=== PATIENT | male | born 1985 | race African-American/Black ===

== ENCOUNTER 2021-11-06 17:18 | Emergency (ER) | payer OTHER ==
[~2021-11-06] VITALS: Ht 190.5 cm; Wt 113.1 kg
--- NOTE | 2021-11-06 17:39 | PHYS DOC ---
Past Medical History Past Medical History: No Pertinent History (LUCIEN RODRIGUEZ DO) Additional Past Surgical Histo: Left leg (LUCIEN RODRIGUEZ DO) Smoking Status: Never Smoker Alcohol Use: None Drug Use: None (LUCIEN RODRIGUEZ DO) General Adult EDM: Chief Complaint: SHORTNESS OF BREATH HPI: HPI: Patient is a 36-year-old male who presents to the emergency department for shortness of breath, cough, nausea/vomiting and right-sided rib pain with movement and cough. Patient states that he was diagnosed with COVID-19 1 week ago. Patient has no medical history. He denies any chest pain, fevers, loss of taste and smell. Patient's vital signs are stable, he is mildly tachycardic but afebrile. (ARIA FRANCIS APRN) Review of Systems: Review of Systems: 14 body systems of the review of systems have been reviewed. See HPI for pertinent positive and negative responses, otherwise all other systems are negative, nonpertinent or noncontributory (ARIA FRANCIS APRN) Heart Score: C/O Chest Pain: No Risk Factors: Risk Factors: DM, Current or recent (<one month) smoker, HTN, HLP, family history of CAD, obesity. Risk Scores: Score 0 - 3: 2.5% MACE over next 6 weeks - Discharge Home Score 4 - 6: 20.3% MACE over next 6 weeks - Admit for Clinical Observation Score 7 - 10: 72.7% MACE over next 6 weeks - Early Invasive Strategies (ARIA FRANCIS APRN) Current Medications: Current Medications Medications (Trade) Dose Ordered Sig/Shari Start Time Stop Time Status Last Admin Dose Admin Ibuprofen (Motrin) 600 mg 1X ONCE 11/06/21 17:45 11/06/21 17:46 UNV (ARIA FRANCIS APRN) Allergies: Allergies: Allergies Coded Allergies Type Severity Reaction Last Updated Verified No Known Drug Allergies 11/06/21 No (ARIA FRANCIS APRN) Physical Exam: PE: Constitutional: Well developed, well nourished, no acute distress, non-toxic appearance. [] HENT: Normocephalic, atraumatic, bilateral external ears normal, oropharynx moist, no oral exudates, nose normal. [] Eyes: PERRL, EOMI, conjunctiva normal, no discharge. [] Neck: Normal range of motion, no tenderness, supple, no stridor. [] Cardiovascular:Heart rate regular rhythm, no murmur [] Lungs & Thorax: Right lower lobe coarse, clear in all other vogt, no hypoxia, mildly tachypneic Abdomen: Bowel sounds normal, soft, no tenderness, no masses, no pulsatile masses. [] Skin: Warm, dry, no erythema, no rash. [] Back: Normal range of motion Extremities: No tenderness, no cyanosis, no clubbing, ROM intact, no edema. [] Neurologic: Alert and oriented X 3, normal motor function, normal sensory function, no focal deficits noted. [] Psychologic: Affect normal, judgement normal, mood normal. [] (ARIA FRANCIS APRN) EKG: EKG: [] (ARIA FRANCIS APRN) Radiology/Procedures: Radiology/Procedures: []REASON: soa, r. rib pain with cough PROCEDURE: PORTABLE CHEST 1V AP chest. HISTORY: Short of air, right rib pain with cough AP view was taken of the chest. Patient's taken a poor inspiration. There are hazy bilateral infiltrates. Heart is normal in size. There is no pleural effusion. IMPRESSION: 1. Poor inspiration. 2. Mild hazy infiltrates. Electronically signed by: Kristopher Valdivia MD (11/06/2021 5:58 PM) [facility] DICTATED and SIGNED BY: KRISTOPHER VALDIVIA MD DATE: 11/06/21 [id number] (ARIA FRANCIS APRN) Course & Med Decision Making: Course & Med Decision Making Pertinent Labs and Imaging studies reviewed. (See chart for details) [] Patient presents to the emergency department for shortness of breath, nausea/vomiting and a cough post COVID-19 diagnosis. Patient's vital signs are stable, he is mildly tachycardic with a heart rate of 106. He is afebrile. Work-up in the ER consisted of blood work and chest x-ray. Patient be treated with ibuprofen and a liter of normal saline. Blood work was mostly unremarkable, mild elevated in creatinine likely due to hypovolemia from vomiting/dehydration-treated with IV fluids. Chest x-ray shows mild hazy bi lateral infiltrates which will be treated with an antibiotic. Following treatment in the emergency department patient's heart rate has improved to 100 bpm. Patient advised to purchase a pulse oximeter and monitor readings, return to the emergency department if her O2 saturation drops below 90%. She is also advised to rest, increase fluids, take Tylenol/ibuprofen for pain and fever. I discussed with patient all findings and diagnostic testing as well as the need to follow-up with PCP for further evaluation and treatment or return to the ER if any new or worsening symptoms. Strict return precautions were also discussed at length. Patient voiced understanding and agreement with the plan. Patient is hemodynamically stable at the time of disposition. (ARIA FRANCIS APRN) Dragon Disclaimer: DragQalendra Disclaimer: This electronic medical record was generated, in whole or in part, using a voice recognition dictation system. (ARIA FRANCIS APRN) Departure Departure Impression: Primary Impression: Pneumonia due to COVID-19 virus Disposition: HOME / SELF CARE / HOMELESS Condition: GOOD Patient Instructions: Pneumonia, Adult Additional Instructions: You are seen in the emergency department today for shortness of breath, cough, vomiting as well as right-sided chest wall pain. Your lab work was un remarkable, you did have an elevated creatinine level which could be due to dehydration from your episodes of vomiting. You need to follow-up with your primary care provider regarding this finding. Your chest x-ray did show pneumonia which will be treated with antibiotic. Please start and finish the antibiotic completely. Increase your fluids and rest at home. You can take Tyl enol and/or ibuprofen for your pain. Please purchase a pulse oximeter and monitor your O2 saturations and heart rate at home. Please return to the emergency department if your O2 saturation drops below 90%. You are being discharged home with a nausea medication that you can take as needed. Please follow-up with your primary care provider on Monday regarding your ER visit. Please return to the emergency department if you develop chest pain, increasing shortness of breath, high fevers refractory to treatment, intractable nausea or vomiting or any new or worsening concerns. Scripts Albuterol Sulfate (Proair Hfa) 8.5 Gm Hfa.aer.ad 1 PUFF INH PRN Q6HRS PRN for SHORTNESS OF BREATH for 30 Days, #1 EACH 0 Refills Prov: ARIA FRANCIS APRN 11/06/21 Ondansetron (ONDANSETRON ODT) 4 Mg Tab.rapdis 1 TAB PO PRN Q6-8HRS for 7 Days, #16 TAB 0 Refills Prov: ARIA FRANCIS APRN 11/06/21 Azithromycin (AZITHROMYCIN TABLET) 250 Mg Tablet 1 PKG PO UD for 5 Days, #6 TAB 0 Refills 2 the first day followed by 1 for days 2-5 Prov: ARIA FRANCIS APRN 11/06/21 Attending Signature Attending Signature I have reviewed the PA/[employer]'s note and plan of care. I was available for consultation as needed during the patient's visit in the emergency department. I agree with the clinical impression, plan, and disposition. (LUCIEN RODRIGUEZ DO) ARIA FRANCIS APRN Nov 06, 2021 17:39 LUCIEN RODRIGUEZ DO Nov 07, 2021 00:05
[2021-11-06] MEDS ORDERED: IBUPROFEN 200 MG TABLET. PO ONE (17:45)
[2021-11-06] MEDS ORDERED: IV NORMAL SALINE 1000ML BAG 1,000 ML IV ONE (17:45)
--- NOTE | 2021-11-06 18:01 | RAD ---
AP chest. HISTORY: Short of air, right rib pain with cough AP view was taken of the chest. Patient's taken a poor inspiration. There are hazy bilateral infiltra ana luisa. Heart is normal in size. There is no pleural effusion. IMPRESSION: 1. Poor inspiration. 2. Mild hazy infiltrates. Electronically signed by: Kristopher Valdivia MD (11/06/2021 5:58 PM) [facility]
[2021-11-06 18:18] LABS: BASO % 0 % (0-3); EOS % 0 % (0-3); HEMATOCRIT 39.2 % (39.0-53.0); HEMOGLOBIN 13.1 g/dL (13.0-17.5); LYMPH # 1.6 x10^3/uL (1.0-4.8); LYMPH % 19 % (24-48); MEAN CORPUSCULAR HEMOGLOBIN 31 pg (25-35); MEAN CORPUSCULAR HGB CONC 34 g/dL (31-37); MEAN CORPUSCULAR VOLUME 92 fL (79-100); MONO # 0.4 x10^3/uL (0.0-1.1); MONO % 5 % (0-9); NEUT # 6.5 x10^3/uL (1.8-7.7); NEUT % 77 % (31-73); PLATELET COUNT 200 x10^3/uL (140-400); RED BLOOD COUNT 4.27 x10^6/uL (4.30-5.70); RED CELL DISTRIBUTION WIDTH 12.8 % (11.5-14.5); WHITE BLOOD COUNT 8.6 x10^3/uL (4.0-11.0)
[2021-11-06] MEDS ORDERED: AZIT250T6 PO (18:22)
[2021-11-06 18:29] LABS: CALCIUM 8.5 mg/dL (8.5-10.1); CREATININE 1.5 mg/dL (0.7-1.3); GFR 64.1; POTASSIUM 3.8 mmol/L (3.5-5.1)
[2021-11-06] MEDS ORDERED: ONDA4TAB12 PO (18:40)
[2021-11-06 18:56] VITALS: BP 136/65
[2021-11-06] MEDS ORDERED: ALBU2.5V8 INH (19:27)
== END 2021-11-06 19:30 | disposition home or self-care (01) ==
LOC: ER 17:18
DX: U07.1 COVID-19 (principal); J12.82 Pneumonia due to coronavirus disease 2019
CPT/HCPCS: 36415; 71045; 80048; 85025; 96360; 99284; J7030